=== PATIENT | male | born 1965 | race Caucasian/White ===

== ENCOUNTER 2021-07-05 14:09 | Outpatient (CLI) | payer BC ==
[2021-07-06 08:32] LABS: SARS-CoV-2 PCR by NAA Not Detected (NotDetected)
== END 2021-07-05 14:10 | disposition home or self-care (01) ==
LOC: LABBT 14:09
PROVIDERS: ATTEND Ophthalmology Retina Specialist
DX: Z01.812 Encounter for preprocedural laboratory examination (principal); H35.372 Puckering of macula, left eye; Z20.822 Contact with and (suspected) exposure to COVID-19
CPT/HCPCS: U0003; U0005

== ENCOUNTER 2021-07-10 08:23 | Day surgery (SDC) | payer BC ==
[2021-07-09 13:24] VITALS: BMI 33.9
[~2021-07-10 08:23] MED LIST: EPINEPHrine 0.3 MG in Ophthalmic Irrigation Solution 500 ML IRR SCH; Famotidine/PF 20 mg/2ml Vial ONE; Fentanyl 100 MCG/2 ML VIAL ONE; Midazolam HCl 2 mg/2 ml Vial ONE; PROPOFOL 20 ML ONE
[2021-07-10] MEDS ORDERED: Cyclopentolate 1% Opth Drop 2 ML BOT ONE (08:40)
[2021-07-10] MEDS ORDERED: Phenylephrine 2.5% Ophth Soln 5 ML BOT ONE (08:40)
[2021-07-10] MEDS ORDERED: Triamcinolone 40 MG/ML VIAL ONE (10:12)
[2021-07-10] MEDS ORDERED: Ondansetron PF 4 MG/2 ML Vial ONE (10:12)
[2021-07-10] MEDS ORDERED: Lidocaine 4% PF 5 ML AMP ONE (10:12)
[2021-07-10] MEDS ORDERED: Lidocaine 1% PF 5 ML VIAL ONE ×2 (10:12)
[2021-07-10] MEDS ORDERED: Bupivacaine PF 0.75% SDV 10 ML ONE (10:12)
[2021-07-10] MEDS ORDERED: Metoclopramide HCl 10 MG/2 ML VIAL ONE (10:12)
[2021-07-10] MEDS ORDERED: CEFAZOLIN 1 GM VIAL ONE (10:12)
[2021-07-10] MEDS ORDERED: Indocyanine Green 25 MG/10 ML VIAL ONE (10:12)
[2021-07-10] MEDS ORDERED: PROPOFOL 200 MG/20 ML VIAL ONE (10:12)
[2021-07-10] MEDS ORDERED: Meperidine HCl/PF 25 MG/ML VIAL ONE (11:08)
== END 2021-07-10 12:20 | disposition home or self-care (01) ==
LOC: SDC 08:23
PROVIDERS: ATTEND Ophthalmology Retina Specialist
PROC: 08NF3ZZ Release Left Retina, Percutaneous Approach (ICD-10-PCS; principal; 2021-07-10)
PROC: 08T53ZZ Resection of Left Vitreous, Percutaneous Approach (ICD-10-PCS; principal; 2021-07-10)
DX: H35.372 Puckering of macula, left eye (principal); Z79.899 Other long term (current) drug therapy
CPT/HCPCS: J0171; J0690; J2175; J2250; J2405; J2704; J2765; J3010; J3301; J3490; S0028

== ENCOUNTER 2022-10-14 10:20 | Outpatient (CLI) | payer BC | END 2022-10-14 10:21 | disposition home or self-care (01) | LOC: SCSRAD 10:20 | PROVIDERS: ATTEND Family Medicine Sports Medicine | DX: M25.551 Pain in right hip (principal) ==

== ENCOUNTER 2022-10-24 07:34 | Outpatient (CLI) | payer BC | END 2022-10-24 07:35 | disposition home or self-care (01) | LOC: SCSMRI 07:34 | PROVIDERS: ATTEND Family Medicine Sports Medicine | DX: M25.551 Pain in right hip (principal); M76.11 Psoas tendinitis, right hip ==